=== PATIENT | female | born 1955 | race Caucasian/White ===

== ENCOUNTER 2021-02-12 13:41 | Outpatient (CLI) | payer MEDICARE ==
[2021-02-12 15:20] LABS: Anion Gap 16 mmol/L (10-20); BUN (Urea Nitrogen) 15 mg/dL (9.8-20.1); Calc. Creatinine Clearance 0 mL/min (70-130); Calcium 10.9 mg/dL (7.8-10.44); Carbon Dioxide 24 mmol/L (23-31); Chloride 104 mmol/L (98-107); Glucose 110 mg/dL (80-115); Potassium 3.6 mmol/L (3.5-5.1); Sodium 140 mmol/L (136-145)
[2021-02-13 13:56] LABS: SARS-CoV-2 PCR by NAA Not Detected (NotDetected)
== END 2021-02-12 13:42 | disposition home or self-care (01) ==
LOC: LABBT 13:41
PROVIDERS: ATTEND Neurological Surgery
DX: Z01.818 Encounter for other preprocedural examination (principal); Z20.822 Contact with and (suspected) exposure to COVID-19
CPT/HCPCS: 80048; 93005; U0003; U0005; 93010

== ENCOUNTER 2021-02-17 07:12 | Day surgery (SDC) | payer MEDICARE ==
[2021-02-15 15:07] VITALS: BMI 37.1
[2021-02-17] MEDS ORDERED: Levofloxacin 500 mg/D5W 100 ml Premix Bag ONE (10:11)
[2021-02-17] MEDS ORDERED: Clindamycin/D5W 900 mg/50 ml Premix Bag ONE (10:11)
[2021-02-17] MEDS ORDERED: Fentanyl 250 MCG/5 ML VIAL ONE (10:59)
[2021-02-17] MEDS ORDERED: Dexamethasone 20 MG/5 ML VIAL ONE (11:12)
[2021-02-17] MEDS ORDERED: PROPOFOL 200 MG/20 ML VIAL ONE (11:12)
[2021-02-17] MEDS ORDERED: Lidocaine 1% PF 5 ML VIAL ONE (11:12)
[2021-02-17] MEDS ORDERED: Glycopyrrolate 0.2 MG/ML 5 ML SYRINGE ONE (11:12)
[2021-02-17] MEDS ORDERED: Ondansetron PF 4 MG/2 ML Vial ONE (11:12)
[2021-02-17] MEDS ORDERED: Rocuronium Bromide 10 MG/ML (10ML VIAL) ONE (11:12)
[2021-02-17] MEDS ORDERED: Fentanyl 100 MCG/2 ML VIAL ONE ×2 (12:50→13:18)
[2021-02-17] MEDS ORDERED: Labetalol HCl 100 MG/20 ML VIAL ONE (13:51)
[2021-02-17] MEDS ORDERED: Acetaminophen/Codeine 30-300mg Tablet ONE ×2 (14:22→15:23)
== END 2021-02-17 15:30 | disposition home or self-care (01) ==
LOC: SDC 07:12
PROVIDERS: ATTEND Neurological Surgery
PROC: 0RG20A0 Fusion of 2 or more Cervical Vertebral Joints with Interbody Fusion Device, Anterior Approach, Anterior Column, Open Approach (ICD-10-PCS; principal; 2021-02-17)
DX: M54.12 Radiculopathy, cervical region (principal); M48.02 Spinal stenosis, cervical region; G89.4 Chronic pain syndrome; I10 Essential (primary) hypertension; G43.909 Migraine, unspecified, not intractable, without status migrainosus; F17.200 Nicotine dependence, unspecified, uncomplicated; Z79.82 Long term (current) use of aspirin; Z79.899 Other long term (current) drug therapy; Z88.0 Allergy status to penicillin
CPT/HCPCS: 76000; C1713; C1776; J1100; J1956; J2405; J2704; J3010; J3490